=== PATIENT | male | born 1970 | race Caucasian/White ===

== ENCOUNTER → 2017-11-29 | Outpatient (CLI) | payer BC ==
[~2017-11-29] MED LIST: COZAAR100 MG PO; GLUCOPHAGE500 MG/TAB PO; GLYXAMBI1 TAB PO; JANUVIA25 MG PO; NO HOME MEDICATIONS; NORCO 325 MG-51 TAB PO; PERCOCET 325 MG1 TA2 PO; VALIUM 5MG T5 MG/TAB PO
== END ==
LOC: COL.RAD 10:13
DX: M51.37 Other intervertebral disc degeneration, lumbosacral region (principal); M47.817 Spondylosis without myelopathy or radiculopathy, lumbosacral region; M99.73 Connective tissue and disc stenosis of intervertebral foramina of lumbar region; M43.8X6 Other specified deforming dorsopathies, lumbar region; R60.0 Localized edema; Z98.890 Other specified postprocedural states

== ENCOUNTER → 2018-02-15 | Outpatient (CLI) | payer BC ==
[2004-11-09 08:58] VITALS: BP 164/96
[~2018-02-15] VITALS: Ht 190.5 cm; Wt 99.3 kg
[~2018-02-15] MED LIST changes: +CANA300T PO; +CELEXA 20MG20 MG/TAB PO; +KOMBIGLYZE XR 11 TE1 PO
[2018-02-15 09:48] VITALS: BP 161/97; PULSE 70
[2018-02-15 10:30] VITALS: BP 147/88; PULSE 75
== END ==
LOC: COL.RAD 02-09 08:45
DX: M54.5 Low back pain (principal)
CPT/HCPCS: J3301

== ENCOUNTER → 2018-03-13 | Outpatient (CLI) | payer BC ==
[2004-11-09 08:58] VITALS: BP 164/96
[~2018-03-13] VITALS: Ht 190.5 cm; Wt 100.0 kg
[2018-03-13 13:27] VITALS: BP 138/83; PULSE 85
[2018-03-13 14:25] VITALS: BP 143/88; PULSE 77
== END ==
LOC: COL.RAD 03-09 07:00
DX: M54.5 Low back pain (principal)
CPT/HCPCS: J3301

== ENCOUNTER → 2022-08-17 | Outpatient (CLI) | payer BC | LOC: COL.RAD 07:29 | DX: M79.662 Pain in left lower leg (principal); M79.661 Pain in right lower leg; M79.89 Other specified soft tissue disorders; R60.0 Localized edema; R60.1 Generalized edema ==